=== PATIENT | female | born 1950 | race Caucasian/White ===

== ENCOUNTER 2019-05-19 12:25 | Outpatient (CLI) | payer MEDICARE, OTHER, SELFPAY ==
--- NOTE | 2019-05-19 | XR_ITS ---
WS: [id number] PROCEDURE: XR chest 2V* [id number] CLINICAL INFORMATION: COUGH, CHEST PAIN COMPARISON: None. FINDINGS: Heart: Normal cardiac silhouette. Lungs: Chronic emphysematous changes. Consider granuloma left lung base. No acute pulmonary infiltrat es. No focal pneumonia. Bones: Compression fracture at the thoracolumbar junction with anterior wedging. XR/XR chest 2V* [id number] IMPRESSION: 1. Chronic emphysematous changes. No acute pulmonary infiltrates. 2. Compression fracture thoracolumbar junction with loss of approximately 50% vertebral body height anteriorly with anterior wedging. This is age indetermina nt but likely chronic. Recommend correlation with low-back pain.
== END 2019-05-19 12:26 | disposition home or self-care (01) ==
PROVIDERS: Family Provider Family Medicine; Visit Provider Internal Medicine
DX: J43.9 Emphysema, unspecified (principal); R07.9 Chest pain, unspecified; M48.55XA Collapsed vertebra, not elsewhere classified, thoracolumbar region, initial encounter for fracture; R05 Cough; M54.5 Low back pain

== ENCOUNTER 2019-06-15 09:20 | Outpatient (CLI) | payer MEDICARE, SELFPAY ==
--- NOTE | 2019-06-15 09:42 | XR_ITS ---
WS: [id number] SCREENING DEXA SCAN [facility] CLINICAL INFORMATION: POST MENOPAUSAL COMPARISON: June 15, 2018 FINDINGS: The L1-L4 bone mineral density measures 0.929 g/cm2. This corresponds to a T score score of -2.1 and Z score of -0.3. Left femoral neck bone mineral density measures 0.730 g/cm2. This corresponds to a T score of -2.2 an d Z score of -0.7. Right femoral neck bone mineral density measures 0.698 g/cm2. This corresponds to a T score -2.5of an d Z score of -0.9. Mean femoral neck bone mineral density measures 0.714 g/cm2. This corresponds to a T score of -2.3 an d Z score of -0.8. XR/XR DEXA axial skeleton* [id number] IMPRESSION: Osteoporosis at the lower end of the range. Patient's FRAX calculated 10 year probability for major osteoporotic fracture i s 22.6 % and osteoporotic hip fracture is 6.0%.
== END 2019-06-15 09:21 | disposition home or self-care (01) ==
LOC: RADWPI 09:29
PROVIDERS: Family Provider Family Medicine; PCP Internal Medicine; Visit Provider Internal Medicine
DX: Z78.0 Asymptomatic menopausal state (principal)
CPT/HCPCS: 77080

== ENCOUNTER 2020-07-02 08:21 | Outpatient (RCR) | payer MEDICARE, SELFPAY | END 2020-08-01 23:59 | disposition home or self-care (01) | LOC: SPT 08:21 | PROVIDERS: Family Provider Family Medicine; PCP Internal Medicine; Visit Provider Internal Medicine | DX: M54.2 Cervicalgia (principal) | CPT/HCPCS: 97110; 97140; 97161; G0283 ==

== ENCOUNTER 2020-08-02 06:00 | Outpatient (RCR) | payer MEDICARE, SELFPAY | END 2020-08-31 23:59 | disposition home or self-care (01) | LOC: SPT 06:00 | PROVIDERS: Family Provider Family Medicine; PCP Internal Medicine; Visit Provider Internal Medicine | DX: M54.2 Cervicalgia (principal) | CPT/HCPCS: 97140; G0283 ==

== ENCOUNTER → 2020-09-27 08:31 | Outpatient (BNVA) | payer MEDICARE, SELFPAY | PROVIDERS: Family Provider Family Medicine; PCP Internal Medicine; Visit Provider Internal Medicine | DX: Z01.812 Encounter for preprocedural laboratory examination (principal); Z20.822 Contact with and (suspected) exposure to COVID-19 | CPT/HCPCS: 87635 ==

== ENCOUNTER 2020-10-03 07:12 | Outpatient (CLI) | payer MEDICARE, SELFPAY ==
--- NOTE | 2020-10-03 09:45 | PFTS_ITS ---
Date of Study:10/03/20 Date of Dictation: MECHANICS: Forced vital capacity (FVC) is normal. Forced expiratory volume in one second (FEV1) is normal. FEV1/FVC is reduced. FLOW VOLUME LOOP: Reduced flow at all lung volumes with scooping. LUNG VOLUMES: Total lung capacity (TLC) is normal. Residual volume (RV) is normal. DIFFUSING CAPACITY FOR CARBON MONOXIDE: Moderately reduced. INTERPRETATION: The postbronchodilator spirometry is consistent with mild airflow obstruction. There is no significant postbronchodilator response. Lung volumes are normal. Gas exchange (DLCO) is moderately reduced. MTDD
== END 2020-10-03 07:13 | disposition home or self-care (01) ==
PROVIDERS: PCP Internal Medicine; Visit Provider Internal Medicine
DX: J44.9 Chronic obstructive pulmonary disease, unspecified (principal)
CPT/HCPCS: 94060; 94726; 94729

== ENCOUNTER 2020-11-15 08:51 | Outpatient (RCR) | payer MEDICARE, BC, SELFPAY | END 2020-12-01 23:59 | disposition home or self-care (01) | LOC: PULRHB 08:51 | PROVIDERS: PCP Internal Medicine; Visit Provider Internal Medicine | DX: J44.9 Chronic obstructive pulmonary disease, unspecified (principal) | CPT/HCPCS: 94618; G0424 ==

== ENCOUNTER 2020-12-02 06:00 | Outpatient (RCR) | payer MEDICARE, BC, SELFPAY | END 2021-01-01 23:59 | disposition home or self-care (01) | LOC: PULRHB 06:00 | PROVIDERS: PCP Internal Medicine; Visit Provider Internal Medicine | DX: J44.9 Chronic obstructive pulmonary disease, unspecified (principal) | CPT/HCPCS: G0424 ==

== ENCOUNTER 2021-01-02 06:00 | Outpatient (RCR) | payer MEDICARE, BC, SELFPAY | END 2021-01-31 23:59 | disposition home or self-care (01) | LOC: PULRHB 06:00 | PROVIDERS: PCP Internal Medicine; Visit Provider Internal Medicine | DX: J44.9 Chronic obstructive pulmonary disease, unspecified (principal) | CPT/HCPCS: G0424 ==

== ENCOUNTER 2021-02-01 06:00 | Outpatient (RCR) | payer MEDICARE, BC, SELFPAY | END 2021-03-03 23:59 | disposition home or self-care (01) | LOC: PULRHB 06:00 | PROVIDERS: PCP Internal Medicine; Visit Provider Internal Medicine | DX: J44.9 Chronic obstructive pulmonary disease, unspecified (principal) | CPT/HCPCS: G0424 ==

== ENCOUNTER → 2021-06-26 10:24 | Outpatient (BNVA) | payer MEDICARE, BC, SELFPAY | PROVIDERS: PCP Internal Medicine; Referring Provider Nurse Practitioner; Visit Provider Specialist | DX: S42.255A Nondisplaced fracture of greater tuberosity of left humerus, initial encounter for closed fracture; W00.0XXA Fall on same level due to ice and snow, initial encounter; Z46.89 Encounter for fitting and adjustment of other specified devices; M25.512 Pain in left shoulder | CPT/HCPCS: 73030; 97760; L3670 ==

== ENCOUNTER 2021-06-26 12:20 | Outpatient (CLI) | payer MEDICARE, BC, SELFPAY | END 2021-06-26 12:21 | disposition home or self-care (01) | LOC: SPT 12:21 | PROVIDERS: PCP Internal Medicine; Visit Provider Specialist | DX: Z46.89 Encounter for fitting and adjustment of other specified devices (principal); M25.512 Pain in left shoulder | CPT/HCPCS: 97760; L3670 ==

== ENCOUNTER → 2021-07-17 08:06 | Outpatient (BNVA) | payer MEDICARE, BC, SELFPAY | PROVIDERS: PCP Internal Medicine; Visit Provider Specialist | DX: S42.252A Displaced fracture of greater tuberosity of left humerus, initial encounter for closed fracture (principal); S49.90XA Unspecified injury of shoulder and upper arm, unspecified arm, initial encounter; X58.XXXA Exposure to other specified factors, initial encounter | CPT/HCPCS: 73030 ==

== ENCOUNTER 2021-11-29 07:26 | Outpatient (CLI) | payer MEDICARE, BC, SELFPAY ==
[2021-11-29 07:34] VITALS: BMI 21.7
--- NOTE | 2021-11-29 07:44 | ECG_ITS ---
[facility] Test Date: 2021-11-29 Pat Name: Michell Florian Department: Room: Gender: Female Junior Account Manager: : 1950 Requested By: Brayan Loja Order Number: [id number] Louie MD: Dalton Maldonado M.D. Interpretive Statements NAME OF STUDY: EXERCISE SESTAMIBI STRESS TEST INDICATION: Chest Pain, PROCEDURE: The baseline electrocardiogram showed normal sinus rhythm with normal ST-Ts. At the baseline, the patient's blood pressure was 178/98 mm Hg with a heart rate of 81. The patient exercised for 3 minutes and 31 seconds on a standard Cem protocol. Patient attained a maximum heart rate of 146 beats per minute(97% of the maximum predicted heart rate) with a blood pressure at the peak exercise of 188/121 mm Hg. The EKG at the peak exercise revealed some nonspecific T changes. Occasional PVCs are noted on the monitor.. Patient did not have any significant chest pain. Occasional PVCs are noted on the monitor. Sestamibi was injected 1 minute prior to the peak exercise During the recovery phase, there were no new changes. Blood pressure at the end of the recovery phase was 171/98 mm Hg with a heart rate of 97 per minute. CONCLUSION: 1. No significant EKG changes with the treadmill exercise 2. No exercise-induced chest pain. Occasional PVCs are noted on the monitor with a peak exercise . 3. Impaired exercise tolerance, attained a maximum of 4.6 METs 4. Sestamibi/Sestamibi perfusion results pending; see separate report. Electronically Signed On 11-29-2021 18:37:44 CDT by Dalton Maldonado M.D. [email or web address]
--- NOTE | 2021-11-29 07:44 | NMCV_ITS ---
NM delphine perf SPECT r/s* [id number] Michell Florian Age: 71 Gender: F : 1950 Exam Date: 11/29/2021 08:44 Ordering Phys: Brayan Roach DO Technologist: WEI Shaffer Exam Location: [facility] Indications: CHEST PAIN STRESS TEST Please see separate stress test report in [facility] for full findings IMAGE PROTOCOL Rest/Stress 1 Exercise Day Radiopharmaceutical Dose (mCi) Administration Site Administered by Rest: Tc-99m 10.9 IV WEI Juarez Sestamibi Stress:Tc-99m 32.9 IV WEI Juarez Sestamibi Rest: 29-Nov-2021 60 Discovery 630 Stress: 29-Nov-2021 30 Discovery 630 Radiopharmaceutical was injected at 95 % maximum heart rate. Images obtained in supine and prone position. SPECT RESULTS Technical Quality: Excellent Raw Data Analysis: Normal Image Corrections: No attenuation or motion correction applied Summed Stress Score: 0 Summed Rest Score: 0 Summed Difference Score: 0 PERFUSION FINDINGS Fairly uniform myocardial tracer uptake with no significant occlusion normalities. FUNCTIONAL RESULTS (calculated via Gated SPECT) Stress Image LV EF (%): 85 Stress EDV (mL):52 TID: 1 Stress ESV (mL):8 FUNCTIONAL FINDINGS: Segmental wall motion analysis revealing no gross wall motion abnormalities IMPRESSIONS 1. Myocardial perfusion imaging revealing uniform myocardial tracer uptake with no significant perfusion normalities 2. Normal LV ejection fraction of 85%. 3. LV wall motion analysis revealing no gross wall motion normalities. 4. Normal LV volume. 5. Low probability for coronary ischemia, based on the above findings No similar previous studies are available for comparison Dr Dalton Maldonado MD FAC (Electronically Signed) Final Date: 29 November 2021 15:33 S
[2021-11-29 09:40] VITALS: BP 171/98; PULSE 94
== END 2021-11-29 07:27 | disposition home or self-care (01) ==
PROVIDERS: PCP Internal Medicine; Visit Provider Internal Medicine
DX: R07.9 Chest pain, unspecified (principal)
CPT/HCPCS: 78452; 93017; A9500

== ENCOUNTER 2022-04-03 07:08 | Outpatient (CLI) | payer MEDICARE, BC, SELFPAY ==
--- NOTE | 2022-04-03 07:41 | CT_ITS ---
WS: [id number] LDCT LUNG CANCER SCREENING TECHNIQUE: Noncontrast CT of the chest with coronal and sagittal reformatted images. CLINICAL INFORMATION: HX OF TOBACCO USE COMPARISON: None. DLP: 79.31 mGy.cm DIvol: Mean CTDIvol: 1.60 (mGy) All CT scans at [facility] use at least one of these dose optimization techniques: automat ed exposure control; mA and/or kV adjustment per patient size (includes targeted exams where dose is matched to clinical indication); or iterative reconstruction. FINDINGS: Moderate chronic emphysematous changes. Fibrosis in the lung apices. Calcified granuloma in the lingula. No suspicious pulmonary parenchymal opacities. Mild aortic calcification. Normal caliber thoracic aorta. No mediastinal or hilar lymphadenopathy. No axillary lymphadenopathy. Normal caliber descending thoracic aorta. Normal GE junction. Moderate thoracic kyphosis. Chronic ant erior wedging in the mid thoracic spine. Chronic appearing compression fracture superior endplate T12 with mild retropulsion posterior superior cortex. This results in moderate central canal stenosis. T his can be further evaluated with CT or MRI. CT/CT lung screening [id number] IMPRESSION:Chronic appearing compression fracture superior endplate T12 with mi ld retropulsion posterior superior cortex. This results in moderate central can al stenosis. This can be further evaluated with CT or MRI. LUNG-RADS: 2S-Benign Appearance or Behavior with Significant Findings FOLLOW UP: 12 Month: Continue annual screening with LDCT
== END 2022-04-03 07:09 | disposition home or self-care (01) ==
PROVIDERS: PCP Internal Medicine; Visit Provider Internal Medicine
DX: Z12.2 Encounter for screening for malignant neoplasm of respiratory organs (principal); Z87.891 Personal history of nicotine dependence
CPT/HCPCS: 71271

== ENCOUNTER → 2022-05-08 08:36 | Outpatient (BNVA) | payer MEDICARE, BC, SELFPAY | PROVIDERS: PCP Internal Medicine; Referring Provider Internal Medicine; Visit Provider Dermatology | DX: D48.9 Neoplasm of uncertain behavior, unspecified (principal); L82.1 Other seborrheic keratosis; L81.4 Other melanin hyperpigmentation; D69.2 Other nonthrombocytopenic purpura | CPT/HCPCS: 88305 ==

== ENCOUNTER → 2022-09-17 14:06 | Outpatient (BNVA) | payer MEDICARE, BC, SELFPAY | PROVIDERS: PCP Internal Medicine; Visit Provider Dermatology | DX: L82.0 Inflamed seborrheic keratosis (principal); L57.8 Other skin changes due to chronic exposure to nonionizing radiation; L82.1 Other seborrheic keratosis; H61.009 Unspecified perichondritis of external ear, unspecified ear | CPT/HCPCS: 11900; 17110; 99213; J3301 ==

== ENCOUNTER → 2022-10-22 14:42 | Outpatient (BNVA) | payer MEDICARE, BC, SELFPAY | PROVIDERS: PCP Internal Medicine; Visit Provider Dermatology | DX: H61.031 Chondritis of right external ear (principal); L57.8 Other skin changes due to chronic exposure to nonionizing radiation; L82.1 Other seborrheic keratosis | CPT/HCPCS: 11900; 99213 ==

== ENCOUNTER → 2023-06-03 14:40 | Outpatient (BNVA) | payer MEDICARE, BC, SELFPAY | PROVIDERS: PCP Internal Medicine; Referring Provider Internal Medicine; Visit Provider Psychiatry & Neurology Neurology | DX: R20.0 Anesthesia of skin (principal) | CPT/HCPCS: 95911 ==

== ENCOUNTER → 2023-08-07 10:52 | Outpatient (BNVA) | payer MEDICARE, BC, SELFPAY | PROVIDERS: PCP Internal Medicine; Referring Provider Internal Medicine; Visit Provider Internal Medicine Pulmonary Disease | DX: J43.2 Centrilobular emphysema (principal); J44.9 Chronic obstructive pulmonary disease, unspecified; Z87.891 Personal history of nicotine dependence | CPT/HCPCS: 99204 ==

== ENCOUNTER 2023-08-10 11:57 | Outpatient (CLI) | payer MEDICARE, BC, SELFPAY ==
--- NOTE | 2023-08-10 12:02 | MR_ITS ---
WS: [id number] MRI CERVICAL SPINE NONCONTRAST TECHNIQUE: Sagittal T1, T2 and STIR imaging. Axial T2, gradient, and fiesta imaging. CLINICAL INFORMATION: CERVICAL RADICULOPATHY COMPARISON: None. FINDINGS: Straightening of the normal cervical doses. Moderate spondylitic changes. Disc bulging worse at C3-4, C5-C6 and C6-C7. C2-C3: Advanced LEFT facet arthropathy. Mild LEFT and no significant RIGHT foraminal narrowing. Spina l canal is patent. C3-C4: Mild disc osteophyte complex with slight effacement of the ventral thecal sac. Advanced LEFT f acet arthropathy. Moderate LEFT and mild RIGHT bony foraminal narrowing. C4-C5: Disc osteophyte complex with endplate ridging. Advanced RIGHT facet arthropathy. Moderate to s evere RIGHT greater than LEFT bony foraminal narrowing. C5-C6: Disc osteophyte complex with slight indentation RIGHT ventral cervical cord. Mild central kai l stenosis. Moderate to severe facet arthropathy. Moderate to severe LEFT and mild RIGHT bony foramin al narrowing. C6-C7: Disc osteophyte complex with endplate ridging. Moderate facet arthropathy. Severe bilateral rd ny foraminal narrowing. Mild central canal stenosis. C7-T1: Mild LEFT and no significant RIGHT foraminal narrowing. Spinal canal is patent. Visualized brain stem structures: Normal. Prevertebral soft tissues: Normal. IMPRESSION: 1. Straightening of the normal cervical lordosis with moderate spondylitic changes. 2. Mild central canal stenosis C5-C6 and C6-C7. 3. Moderate to severe bony foraminal narrowing worse at LEFT C3-C4, RIGHT C4-5, LEFT C5-C6 and bilat eral C6-7. 4. Moderate to advanced facet arthropathy worse at LEFT C2-3, LEFT C3-4, RIGHT C4-5, bilateral C5-C6 .
== END 2023-08-10 11:58 | disposition home or self-care (01) ==
LOC: RAD 11:58
PROVIDERS: PCP Internal Medicine; Visit Provider Orthopaedic Surgery
DX: M54.12 Radiculopathy, cervical region (principal); M48.02 Spinal stenosis, cervical region
CPT/HCPCS: 72141

== ENCOUNTER 2024-08-25 07:31 | Outpatient (RCR) | payer MEDICARE, BC, SELFPAY | END 2024-08-31 23:59 | disposition home or self-care (01) | LOC: SPT 07:31 | PROVIDERS: Visit Provider Neurological Surgery | DX: M54.6 Pain in thoracic spine (principal); M54.2 Cervicalgia | CPT/HCPCS: 97110; 97161 ==

== ENCOUNTER 2024-09-01 05:00 | Outpatient (RCR) | payer MEDICARE, BC, SELFPAY | END 2024-10-01 23:59 | disposition home or self-care (01) | LOC: SPT 05:00 | PROVIDERS: Visit Provider Neurological Surgery | DX: M81.0 Age-related osteoporosis without current pathological fracture (principal) | CPT/HCPCS: 97110 ==

== ENCOUNTER 2024-10-02 05:00 | Outpatient (RCR) | payer MEDICARE, BC, SELFPAY | END 2024-10-31 23:59 | disposition home or self-care (01) | LOC: SPT 05:00 | PROVIDERS: Visit Provider Neurological Surgery | DX: M54.6 Pain in thoracic spine (principal); M54.2 Cervicalgia | CPT/HCPCS: 97110 ==

== ENCOUNTER 2024-11-01 05:00 | Outpatient (RCR) | payer MEDICARE, BC, SELFPAY | END 2024-12-01 23:59 | disposition home or self-care (01) | LOC: SPT 05:00 | PROVIDERS: Visit Provider Neurological Surgery | DX: M80.00XD Age-related osteoporosis with current pathological fracture, unspecified site, subsequent encounter for fracture with routine healing (principal) | CPT/HCPCS: 97110 ==

== ENCOUNTER 2024-12-19 10:43 | Outpatient (CLI) | payer MEDICARE, BC, SELFPAY ==
--- NOTE | 2024-12-19 10:50 | MM_ITS ---
WS: [id number] BILATERAL 3D TOMOSYNTHESIS DIGITAL SCREENING MAMMOGRAPHY WITH CAD CLINICAL INFORMATION: SCREENING HISTORY: Screening mammogram. No current complaints. COMPARISON: New baseline TECHNIQUE: Bilateral CC and MLO views. FINDINGS: The breasts are composed of heterogeneous fibroglandular density tissue, which can limit the detection of small underlying mass lesions. No suspicious mass, asymmetry, calcifications, or architectural distortion. No evidence of malignancy. MM/MM scr tomosynthesis [id number] IMPRESSION: DENSITY: The breasts are heterogeneously dense, which may obscure small masses. BI-RADS: 1 - Negative FOLLOW UP: 1 Year Follow-up Recommend return to annual screening mammography.
== END 2024-12-19 10:44 | disposition home or self-care (01) ==
LOC: RAD 10:44
PROVIDERS: Visit Provider Family Medicine
DX: Z12.31 Encounter for screening mammogram for malignant neoplasm of breast (principal); R92.333 Mammographic heterogeneous density, bilateral breasts; R92.323 Mammographic fibroglandular density, bilateral breasts
CPT/HCPCS: 77063; 77067

== ENCOUNTER 2025-01-03 12:40 | Oncology outpatient (recurring) (ONCR) | payer MEDICARE, BC, SELFPAY ==
[2025-01-03] MEDS: denosumab 60 mg SDV SUBCUT (13:15)
== END 2025-01-31 23:59 | disposition home or self-care (01) ==
LOC: ONCMED 12:42
PROVIDERS: PCP Family Medicine; Visit Provider Family Medicine
DX: M81.0 Age-related osteoporosis without current pathological fracture (principal); Z79.899 Other long term (current) drug therapy
CPT/HCPCS: 96372; J0897